=== PATIENT | male | born 1955 | race Caucasian/White ===

== ENCOUNTER 2016-12-13 08:20 | Emergency (ER) | payer BC ==
[~2016-12-13] VITALS: Ht 177.8 cm; Wt 83.5 kg
[2016-12-13] MEDS ORDERED: GENICIN500 MG PO (10:44)
[2016-12-13] MEDS ORDERED: MULTIPLE VITAM1 EACH PO (10:45)
[2016-12-13] MEDS ORDERED: PRILOSEC20 MG PO (10:46)
[2016-12-13] MEDS ORDERED: XALATAN 0.005%2.5 ML EYEBOTH (10:46)
[2016-12-13] MEDS ORDERED: ANTIHISTAMINE25 M1 PO (10:47)
[2016-12-13] MEDS ORDERED: FISH OIL1 GM PO (10:47)
== END 2016-12-13 09:33 | disposition short-term general hospital (02) ==
LOC: ER 08:20
PROC: 0HQEXZZ Repair Left Lower Arm Skin, External Approach (ICD-10-PCS; principal; 2016-12-13)
DX: S61.215A Laceration without foreign body of left ring finger without damage to nail, initial encounter (principal); K21.9 Gastro-esophageal reflux disease without esophagitis; H40.9 Unspecified glaucoma; Z88.0 Allergy status to penicillin; Z88.2 Allergy status to sulfonamides; W45.8XXA Other foreign body or object entering through skin, initial encounter